=== PATIENT | male | born 1960 | race Asian ===

== ENCOUNTER → 2019-01-22 | Outpatient (CLI) | payer OTHER ==
--- NOTE | 2019-01-22 09:16 | Diagnostic Imaging Report ---
EXAM: US ABDOMEN COMPLETE DATE: 01/22/2019 8:25 AM INDICATION: Hepatitis B COMPARISON: None TECHNIQUE: Transverse and longitudinal lopez scale and color doppler sonographic images of the upper abdomen were obtained. FINDINGS: There is no evidence of fluid or masses seen in the area of clinical concern in the right lower quadrant. LIVER 12.9 cm in the right midclavicular line. Normal echogenicity of the liver with normal contour, no masses. SPLEEN 8.3 cm in maximum diameter. Normal echogenicity, no masses. GALLBLADDER Mild sludge in the gallbladder. No gallstones, gallbladder wall thickening, gallbladder distention, or pericholecystic fluid. The gallbladder wall measures 2 mm. Negative sonographic Paulino's sign. BILE DUCTS No intra nor extra-hepatic biliary dilation. Common bile duct measures 1 mm PANCREAS: Visualized portions are normal. RIGHT KIDNEY: 10.1 cm Echogenicity: Normal Collecting System: No hydronephrosis Stones: None Cyst/Mass: None LEFT KIDNEY: 9.6 cm Echogenicity: Normal Collecting System: No hydronephrosis Stones: None Cyst/Mass: None VESSELS: Aorta: Visualized portions are within normal size limits Inferior Vena Cava: Visualized portions are normal Main Portal Vein: 1.1 cm, normal size with hepatopetal flow. FREE FLUID: None IMPRESSION: Mild sludge in the gallbladder. No specific sonographic evidence of cholecystitis. Signed by: Scottie De Jesus MD on 01/22/2019 9:12 AM
== END ==
LOC: US 08:10
PROVIDERS: ATTEND Internal Medicine Gastroenterology
DX: B19.10 Unspecified viral hepatitis B without hepatic coma (principal)
CPT/HCPCS: 76700